=== PATIENT | female | born 1935 | race Caucasian/White ===

== ENCOUNTER 2018-05-17 09:49 | Inpatient (IN) | payer MEDICARE ==
[~2018-05-17] VITALS: Ht 162.6 cm; Wt 76.1 kg
[2018-05-17] MEDS ORDERED: SODIUM CHLORIDE FLUSH 10ML SYR IVF ONE (10:00)
[2018-05-17 10:09] LABS: MEAN CORPUSCULAR HEMOGLOBIN 28.2 pg (27.0-34.8); MEAN CORPUSCULAR HGB CONC 32.7 g/dL (32.4-35.8); MEAN CORPUSCULAR VOLUME 86.2 fL (80-100); MEAN PLATELET VOLUME 7.4 fL (7.4-10.4); PLATELET COUNT 391 x10^3/uL (130-400); RED BLOOD COUNT 5.63 x10^6/uL (3.82-5.3); RED CELL DISTRIBUTION WIDTH 13.4 % (9.6-15.2)
[2018-05-17 10:19] LABS: ALBUMIN 3.5 g/dL (3.4-5.0); ANION GAP 14 mmol/L (5-15); CHLORIDE 99 mmol/L (98-107)
[2018-05-17 10:20] LABS: SALICYLATE LEVEL < 1.7 mg/dL (2.8-20.0)
[2018-05-17 10:21] LABS: ALANINE AMINOTRANSFERASE 19 U/L (12-78); ALKALINE PHOSPHATASE 85 U/L (45-117); BILIRUBIN,TOTAL 0.3 mg/dL (0.2-1.0); CREATININE 1.03 mg/dL (0.55-1.02); TOTAL PROTEIN 7.7 g/dL (6.4-8.2)
[2018-05-17 10:24] LABS: ACETAMINOPHEN < 2 mcg/mL (10-30)
[2018-05-17] MEDS ORDERED: PLEASE ENTER ALLERGIES MC SCH (10:30)
--- NOTE | 2018-05-17 10:32 | NUR ---
BACK TO TRAUMA [address] PT REMAINS SINUS TACH WITH SINUS ARRYTHMIA AND IS BREATHING OVER THE VENT. VS STABLE.
[2018-05-17 10:36] LABS: BASOPHILS # (AUTO) 0.01 x10^3/uL (0-0.1); BASOPHILS % (AUTO) 0 % (0-1); EOSINOPHILS # (AUTO) 0.01 x10^3/uL (0-0.4); EOSINOPHILS % (AUTO) 0 % (1-7); LYMPHOCYTES # (AUTO) 1.33 x10^3/uL (1-3.4); LYMPHOCYTES % (AUTO) 4 % (22-44); MD SCAN; MONOCYTES # (AUTO) 0.73 x10^3/uL (0.2-0.8); MONOCYTES % (AUTO) 2 % (2-9); NEUTROPHILS # (AUTO) 29.48 x10^3/uL (1.8-6.8); NEUTROPHILS % (AUTO) 93 % (42-75)
[2018-05-17] MEDS ORDERED: LEVO100T5 PO (10:44)
[2018-05-17] MEDS ORDERED: ESTR1TAB15 PO (10:44)
[2018-05-17] MEDS ORDERED: ASCO-96 PO (10:45)
[2018-05-17] MEDS ORDERED: OLME20TA17 PO (10:45)
[2018-05-17 11:14] LABS: INTERNATIONAL NORMALIZED RATIO 0.94 (0.93-1.1)
--- NOTE | 2018-05-17 11:19 | NUR ---
SON, TRACI, CALLED FROM [place]. ACCORDING TO TRACI, DPOA FOR PATIENT IS HER OTHER SON, RADHA AT PHONE NUMBER .
[2018-05-17] MEDS ORDERED: SODIUM CHLORIDE FLUSH 10ML SYR IVF PRN (11:30)
--- NOTE | 2018-05-17 11:35 | NUR ---
[facility] HAND-OFF REPORT TO RN JOSE
--- NOTE | 2018-05-17 11:39 | NUR ---
SBAR TELEPHONE HAND-OFF TO FOX IN CCU. FOX TO CALL BACK WHEN READY FOR PATIENT TO COME UP.
--- NOTE | 2018-05-17 11:42 | NUR ---
REPORT RECEIVED, CARE ASSUMED. SR PER MONITOR, AUTO BP AND PULSE OX IN PLACE. PT ON VENTILATOR AC 15 TV 400 PEEP 5 80%. FAMILY AT BEDSIDE.
--- NOTE | 2018-05-17 11:59 | NUR ---
FAMILY AT BEDSIDE DECLINING SHOOK AND NG AT THIS TIME. WOULD LIKE TO HAVE THIS DISCUSSED WITH RADHA PATEL.
[2018-05-17] MEDS ORDERED: POTASSIUM CHLORIDE 20 MEQ in SODIUM CHLORIDE 0.9% 1,000 ML IV SCH (12:16)
[2018-05-17 12:23] VITALS: BP 158/60
[2018-05-17] MEDS ORDERED: POLYETHYLENE GLYCOL 17 GM PACKET PO PRN (12:30)
[2018-05-17] MEDS ORDERED: LEVETIRACETAM 500 MG in SODIUM CHLORIDE 0.9% 100 ML IV SCH (12:30)
[2018-05-17] MEDS ORDERED: BISACODYL 10 MG SUPP PR PRN (12:30)
[2018-05-17] MEDS ORDERED: INSTRUCTION SEE COMMENTS XX ONE (12:30)
[2018-05-17] MEDS ORDERED: ACETAMINOPHEN 325 MG TABLET PO PRN (12:30)
--- NOTE | 2018-05-17 12:48 | NUR ---
DR DUMONT AT BEDSIDE TO EVAL PT
--- NOTE | 2018-05-17 12:56 | NUR ---
SPOKE TO [employer] AT [employer] NETWORK. PT NOT A CANIDATE FOR ORGAN DONATION, POSSIBLY A CONIDATE FOR TISSUE DONATION. NETWORK TO BE CALLED BACK UPON EXPIRATION. .
[2018-05-17] MEDS ORDERED: AMPICILLIN/SULBACTAM 3 GM in SODIUM CHLORIDE 0.9% 100 ML IV SCH (13:30)
[2018-05-17] MEDS ORDERED: morphine SULFATE 10 MG/ML, 1ML IVPush PRN ×2 (14:00)
[2018-05-17] MEDS ORDERED: LORazepam 2 MG/ML, 1ML IVPush PRN ×2 (14:00)
[2018-05-17] MEDS ORDERED: SODIUM CHLORIDE 0.9% 1,000ML IVBOLUS ONE (17:00)
[2018-05-17] MEDS ORDERED: NOREPINEPHRINE 4 MG in SODIUM CHLORIDE 0.9% 246 ML IV PRN (17:00)
[2018-05-17] MEDS ORDERED: ATORVASTATIN 80 MG TABLET PO SCH (21:00)
== END 2018-05-17 22:45 | disposition expired | DRG 208 ==
LOC: ED 10:24 → EDIP 11:13 → CCU 13:33
PROVIDERS: ADMIT Hospitalist; ATTEND Hospitalist
PROC: 5A1935Z Respiratory Ventilation, Less than 24 Consecutive Hours (ICD-10-PCS; principal; 2018-05-17)
PROC: 0BH17EZ Insertion of Endotracheal Airway into Trachea, Via Natural or Artificial Opening (ICD-10-PCS; 2018-05-17)
DX: J96.01 Acute respiratory failure with hypoxia (principal); J69.0 Pneumonitis due to inhalation of food and vomit; G93.5 Compression of brain; I62.9 Nontraumatic intracranial hemorrhage, unspecified; I16.9 Hypertensive crisis, unspecified; Z99.11 Dependence on respirator [ventilator] status; N17.9 Acute kidney failure, unspecified; Z66 Do not resuscitate; E03.9 Hypothyroidism, unspecified; I10 Essential (primary) hypertension; I48.91 Unspecified atrial fibrillation; Z88.8 Allergy status to other drugs, medicaments and biological substances; Z51.5 Encounter for palliative care
CPT/HCPCS: 36415; 36600; 70450; 71045; 80053; 80307; 80329; 82803; 85025; 85610; 85730; 87070; 87081; 87205; 93005; 94002; 99291; G0378; G0480; J7030; J7050